=== PATIENT | male | born 1975 | race Caucasian/White ===

== ENCOUNTER 2017-11-21 08:11 | Emergency (ER) | payer BC, OTHER ==
[2017-11-21 08:15] VITALS: BMI 29.0
[2017-11-21 08:17] VITALS: BP 129/81; PULSE 77; RESP 20; TEMP 97.3; O2SAT 97
--- NOTE | 2017-11-21 09:37 | ED PDOC ---
Upper Extremity Pain/Injury Time Seen by Provider: 11/21/17 08:32 Chief Complaint (Nursing): Upper Extremity Problem/Injury History Per: Patient (42 yo male here because he cut his right 3rd finger while cutting a bagel. Patient is able to open and close hand with ease and with normal strength. He is left hand dominant.) History/Exam Limitations: no limitations Past Medical History Reviewed: Historical Data Vital Signs: Last Vital Signs Temp 97.3 F L 11/21/17 08:16 Pulse 77 11/21/17 08:16 Resp 20 11/21/17 08:16 BP 129/81 11/21/17 08:16 Pulse Ox 97 11/21/17 08:16 - Medical History PMH: No Chronic Diseases - Surgical History Surgical History: No Surg Hx - Family History Family History: States: No Known Family Hx - Home Medications Home Medications: Ambulatory Orders Medication Instructions Recorded oxyCODONE/Acetaminophen [Percocet 1 ea PO Q6H PRN #15 tab 01/20/15 5/325 mg Tab] - Allergies Allergies/Adverse Reactions: Allergies Allergy/AdvReac Type Severity Reaction Status Date / Time No Known Allergies Allergy Verified 01/20/15 13:50 Review of Systems ROS Statement: Except As Marked, All Systems Reviewed And Found Negative Constitutional: Negative for: Fever Skin: Positive for: Other (laceration) Physical Exam - Reviewed Nursing Documentation Reviewed: Yes Vital Signs Reviewed: Yes - Physical Exam Appears: Positive for: Well, Non-toxic, No Acute Distress Head Exam: Positive for: ATRAUMATIC, NORMAL INSPECTION, NORMOCEPHALIC Skin: Positive for: Normal Color Eye Exam: Positive for: Normal appearance Neck: Positive for: Normal Respiratory: Negative for: Respiratory Distress Gastrointestinal/Abdominal: Negative for: Distended Extremity: Positive for: Normal ROM, Other (linear lac volar surface proximal phalanx about 2 cm in lenght, superficial and easily approximated) Neurologic/Psych: Positive for: Alert, Oriented - ECG O2 Sat by Pulse Oximetry: 97 Procedures - Laceration/Wound Repair Right Volar Finger Wound's Depth, Shape: superficial Wound Explored: clean Betadine Prep?: Yes Wound Repaired With: Skin adhesive Wound Complexity: Simple Disposition - Clinical Impression Clinical Impression: Finger laceration - Patient ED Disposition Is Patient to be Admitted: No Doctor Will See Patient In The: Office - Disposition Referrals: Colleen Ramirez [Outside] Disposition: Routine/Home Disposition Time: 09:20 Condition: STABLE Additional Instructions: Tdap given 11/21/2017 - effective for up to 10 years Instructions: Skin Adhesive Care (ED) Forms: Colleen Hernandez ([facility]) - [facility] Present On Arrival: Falls Or Trauma
== END 2017-11-21 09:45 | disposition home or self-care (01) ==
LOC: H.ER 08:11
DX: S61.212A Laceration without foreign body of right middle finger without damage to nail, initial encounter (principal); W45.8XXA Other foreign body or object entering through skin, initial encounter; Z23 Encounter for immunization